=== PATIENT | female | born 1975 | race Caucasian/White ===

== ENCOUNTER 2018-03-31 20:11 | Emergency (ER) | payer SELFPAY ==
[2016-02-25 22:03] VITALS: BMI 30.6
[~2018-03-31 20:11] MED LIST: COLACE100 MG PO; EZFE 200200 MG PO; FER-IN-SOL DROP50 ML PO; FERROUS GLUCON324 MG PO; HYDROCODON-ACE1 EAC7 PO; IBUPROFEN600 MG PO; PERCOCET 10/3251 TA1 PO
[2018-03-31 20:43] LABS: BASOPHILS 0.6 % (0-2); EOSINOPHILS 2.9 % (0-7); HEMATOCRIT 40.2 % (36.0-48.0); HEMOGLOBIN 13.4 g/dL (12-16); IMMATURE GRANULOCYTES 0.1 % (0-5); LYMPHOCYTES 27.5 % (15-50); MCH 29.6 pg (26.0-34.0); MCHC 33.3 g/dL (31.0-37.0); MCV 88.7 fL (80.0-100.0); MEAN PLATELET VOLUME 10.9 fL (7.4-10.4); MONOCYTES 4.3 % (2-11); NEUTROPHILS 64.6 % (40-80); PLATELET COUNT 210 10x3/uL (130-400); RBC 4.53 10x6/uL (4.00-5.40); RDW 16.4 % (11.5-14.5); WBC 10.2 10x3/uL (4.8-10.8)
[2018-03-31 20:57] LABS: ALBUMIN 3.5 g/dL (3.4-5.0); ALKALINE PHOSPHATASE 98 U/L (46-116); ALT (SGPT) 58 U/L (10-68); BILIRUBIN - TOTAL 0.69 mg/dL (0.2-1.3); CALC OSMOLALITY 276 mosm/kg (275-300); CALCIUM 9.7 mg/dL (8.5-10.1); CARBON DIOXIDE 28.2 mmol/L (21.0-32.0); CHLORIDE - SERUM 106 mmol/L (98-107); GLUCOSE 104 mg/dL (74-106); POTASSIUM - SERUM 3.9 mmol/L (3.5-5.1); PROTEIN - SERUM 7.6 g/dL (6.4-8.2); SODIUM 140 mmol/L (136-145); UREA NITROGEN 8 mg/dL (7-18); eGFR NON AFRICAN AMERICAN 64 mL/min (90-120)
[2018-03-31 21:08] LABS: AMYLASE - SERUM 65 U/L (25-115); CKMB 0.4 U/L (0.0-3.6); CREATINE KINASE 79 UL (21-215); LIPASE 191 U/L (73-393); TROPONIN-I < 0.017 ng/mL (0.000-0.060)
[2018-03-31 21:18] LABS: APPEARANCE SLT CLOUDY (CLEAR); BILIRUBIN NEGATIVE (NEGATIVE); COLOR YELLOW (YELLOW); GLUCOSE NEGATIVE (NEGATIVE); HCG URINE NEGATIVE (NEGATIVE); KETONE NEGATIVE (NEGATIVE); NITRITE NEGATIVE (NEGATIVE); PROTEIN NEGATIVE (NEGATIVE); SPECIFIC GRAVITY 1.005 (1.005-1.020); UROBILINOGEN NORMAL (NORMAL)
== END 2018-03-31 23:01 | disposition home or self-care (01) ==
LOC: D.ER 20:11
PROVIDERS: Family Medicine
DX: R10.9 Unspecified abdominal pain (principal); R11.10 Vomiting, unspecified

== ENCOUNTER 2019-02-18 06:36 | Emergency (ER) | payer SELFPAY ==
[~2019-02-18] VITALS: Ht 170.2 cm; Wt 90.9 kg
[2019-02-18 06:40] VITALS: Ht 170.2 cm; Wt 90.9 kg
[2019-02-18] MEDS ORDERED: AUGMENTIN 875-11 TAB PO (07:11)
[2019-02-18 07:25] VITALS: BP 128/80
== END 2019-02-18 07:27 | disposition home or self-care (01) ==
LOC: D.ER 06:36
DX: J01.90 Acute sinusitis, unspecified (principal); M79.18 Myalgia, other site; R51 Headache; R53.81 Other malaise; R09.89 Other specified symptoms and signs involving the circulatory and respiratory systems

== ENCOUNTER 2021-03-07 18:18 | Emergency (ER) | payer BC ==
[~2021-03-07] VITALS: Ht 170.2 cm; Wt 97.7 kg
[~2021-03-07 18:18] MED LIST changes: +AUGMENTIN 875-11 TAB PO; +NAPROSYN500 MG PO
[2021-03-07 18:31] VITALS: Ht 170.2 cm; Wt 97.7 kg
[2021-03-07 19:55] VITALS: BP 119/77
== END 2021-03-08 01:13 | disposition home or self-care (01) ==
LOC: D.ER 18:18
DX: S90.32XA Contusion of left foot, initial encounter (principal); W22.8XXA Striking against or struck by other objects, initial encounter; Y93.9 Activity, unspecified; Y92.9 Unspecified place or not applicable